=== PATIENT | female | born 1965 | race Caucasian/White ===

== ENCOUNTER 2019-12-09 20:44 | Emergency (ER) | payer BC ==
[~2019-12-09] VITALS: Ht 167.6 cm; Wt 106.6 kg
[2019-12-09] MEDS ORDERED: MORPHINE SULFATE 2 MG/ML SYR 1ML IV STA ×2 (21:01→22:33)
[2019-12-09] MEDS ORDERED: ONDANSETRON HCL INJ 2MG/ML 2ML 2 MG/ML VIAL IV STA (21:01)
--- NOTE | 2019-12-09 21:11 | Emergency Department Note ---
History of Present Illnes History of Present Illness Chief Complaint: Headache History of Present Illness This is a 54 year old female . 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 Onset (how long ago): hour(s) (3 hours ago) Location: entire head came on suddenly all happened while outside at a wedding Quality: throbbing Radiation: Reports non-radiation Severity: severe Onset quality: sudden Duration (how long): hour(s) (3) Timing of current episode: constant Progression: unchanged Chronicity: chronic (hx of migraines but patient states this is different) Relieving factors: none Exacerbating factors: none Treatments prior to arrival: NSAID Risk factors: hypertension pt stopped her meds without consulting her physician Past Medical/Family History Physician Review I have reviewed the patient's past medical and family history. Any updates have been documented here. Past Medical History Past Medical History: Hypertension, Migraines Other Medical History: iron deficiency anemia Past Surgical History: None Other Surgery: LMP 3 weeks ago usually heavy Social History Smoking Cessation: Never Smoker Alcohol Use: Social Any Illegal Drug Use: No TB Exposure/Symptoms: No Physically hurt or threatened: No Other Last Tetanus: ood Any Pre-Existing Lines (PICC,: No Review of Systems Review of Systems Constitutional: Reports no symptoms EENTM: Reports no symptoms Cardiovascular: Reports no symptoms Respiratory: Reports no symptoms Gastrointestinal: Reports no symptoms Genitourinary: Reports no symptoms Musculoskeletal: Reports no symptoms Neurological: Reports as per HPI, Reports headache Psychological: Reports no symptoms Endocrine: Reports no symptoms Hematological/Lymphatic: Reports no symptoms Review of other systems: All other systems negative Physical Exam Related Data Allergies: Coded Allergies: Penicillins (Verified Allergy, Unknown, 12/09/19) Vital signs reviewed: Yes Physical Exam CONSTITUTIONAL Constitutional: Present well-developed, Present well-nourished, Present obese HENT HENT: Present normocephalic, Present other (no temporal artery tenderness) EYES Eyes: Reports PERRL, Reports conjunctivae normal, Reports EOM normal, Reports lids normal NECK Neck: Present ROM normal, Present supple PULMONARY Pulmonary: Present effort normal, Present breath sounds normal CARDIOVASCULAR Cardiovascular: Present regular rhythm, Present heart sounds normal, Present intact distal pulses, Present capillary refill normal, Present normal rate GASTROINTESTINAL Abdominal: Present soft, Present nontender GENITOURINARY SKIN Skin: Present warm, Present dry MUSCULOSKELETAL Musculoskeletal: Present ROM normal, Present edema NEUROLOGICAL Neurological: Present alert, Present oriented x 3, Present DTRs normal, Present no gross motor or sensory deficits PSYCHOLOGICAL Psychological: Present mood/affect normal, Present behavior normal, Present thought content normal, Present judgement normal Results Laboratory Lab results reviewed: Yes Laboratory comments wbc 10.4 mildly increased h/h 15/48.2 not MCV 81 not consistent with iron deficieny as the pt reports. Chem gluc 132 not fasting and Ca 2+ 10.5 mildly elevated. Pt refused to give a urine therefore test not done . Unlikely that pt at this age Imaging Imaging results reviewed: Yes Impressions ct brain without negative and ct agio also negative Assessment & Plan Medical Decision Making MDM mod improvement with morphine ct with and without neg . Pt told only definitive test to rule out subarachnoid, LP with the patient refused LP Reassessment Reassessment time: 22:54 Reassessment moderate improvement with headache Assessment & Plan Final Impression: (1) Headache Depart Disposition: HOME, SELF-skilled nursing Meds Active Scripts Tramadol Hcl (ULTRAM) 50 Mg Tablet, 50 MG PO QID PRN for headache, #20 TAB 0 Refills Prov:MOR GRECO MD 12/09/19 MOR GRECO MD Dec 09, 2019 21:10
[2019-12-09] MEDS ORDERED: SODIUM CHLORIDE 0.9% 1000ML 1,000 ML IV SCH (21:15)
[2019-12-09] MEDS ORDERED: IOPAMIDOL 370 MG/ML 200 ML INFUS..BTL INJ ONE (21:21)
[2019-12-09] MEDS ORDERED: SODIUM CHLORIDE 0.9% 50ML 50 ML ONE (21:21)
[2019-12-09] MEDS ORDERED: ONDANSETRON HCL INJ 2MG/ML 2ML 2 MG/ML VIAL ONE (21:23)
[2019-12-09] MEDS ORDERED: MORPHINE SULFATE INJ 4 MG/ML INJ 1ML ONE ×2 (21:24→22:41)
[2019-12-09] MEDS ORDERED: SODIUM CHLORIDE 0.9% 1000ML 1,000 ML ONE (21:24)
--- OUTSIDE RECORDS SUMMARY | 2019-12-09 21:56 | XMS REPORT | Continuity of Care Document ---
Author Author [facility] Organization [facility] Address [address] [place] [address] Phone Unavailable Care Team Providers Care Processing Operator Name Role Phone Unavailable Unavailable Payers Payer Name Policy Type Policy Number Effective Date Expiration Date S ource Problems This patient has no known problems. Allergies, Adverse Reactions, Alerts This patient has no known allergies or adverse reactions. Medications This patient has no known medications. Procedures This patient has no known procedures. Results Test Description Test Time Test Comments Results Result Comments Source BREAST ULTRASOUND LEFT 2019-04-21 09:15:41 - DI AG MAMM LEFT RM CAD DIGITALUNILATERAL LEFT DIGITAL DIAGNOSTIC MAMMOGRAM 3D/2D WITH CAD: 04/20/2019CLINICAL: Abnormal Mammogram. Digital breast tomosynthesis was performed in addition to routine CC and MLO views. Current mammographic images were evaluated by either a [employer] M-[employer]u or a [employer] ImageChecker CAD (computer aided detection system). Comparison is made to exams dated 04/11/2019 mamm ogram, 04/12/2012 mammogram, and 04/14/2011 mammogram - [facility] [place]. There are scattered fibroglandular tissues in the left breast. Persistent 6-7 mm oval circumscribed low-density mass at 9 o'clock, posterior depth. No suspicious architectural distortion, malignant type calcification, or lymph node abnormality detected.INCOMPLETE: ADDITIONAL IMAGING EVALUATION NEEDEDPersistent 6-7 mm oval circumscribed low-density mass at 9 o'clock, posterior depth. Targeted and survey left breast ultrasound to follow.- BREAST ULTRASOUND LEFTULTRASOUND OF LEFT BREAST: 04/20/2019Comparison is made to exams dated 04/11/2019 mammogram, 04/12/2012 mammogram, and [facility] Color flow and real-time ultrasound of the left breast were performed. [place] scale images of the real-time examination were reviewed. The breast tissue has scattered fibroglandular background echotexture. Targeted ultrasound demonstrates a few scattered simple cysts at 9 o'clock, which may correlate with the mammographic mass. Incidentally noted is a 13 mm echogenic nonpalpable oval, circumscribed mass at 10 o'clock, 5 cm from the nipple, within the subcutaneous tissue. The rest of the left breast survey ultrasound is negative.IMPRESSION: PROBABLY BENIGN - FOLLOW-UP RECOMMENDEDSimple cyst which may correlate with the mammographic oval circumscribed low-density benign- appearing mass (of note: patient is premenopausal) - in addition, mammogram from 2009 demonstrates a similar mass (see CC view). Incidentally noted echogenic nonpalpable oval circumscribed benign-appearing mass at 10 o'clock, probably benign. A follow-up mammogram and an ultrasound in 6 months is recommended to demonstrate stability. Damion Manzano M.D. ss/:04/21/2019 09:15:41 copy to: Estrellita Regan MD, ph: [phone], fax: [phone] Technologist: Celia CHACON, [facility] sent: Short Term Follow Up Mammogram BI-RADS: 0 Incomplete: Additional Imaging Evaluation Needed Ultrasound BI-RADS: 3 Probably benign DIAG MAMM LEFT RM CAD DIGITAL 2019-04-21 09:15:41 - DIAG MAMM LEFT RM CAD DIGITALUNILATERAL LEFT DIGITAL DIAGNOSTIC MAMMOGRAM 3D/2D WITH CAD: 04/20/2019CLINICAL: Abnormal Mammogram. Digital breast tomosynthesis was performed in addition to routine CC and MLO views. Current mammographic images were evaluated by either a [employer] M[employer] or a [employer] ImageChecker CAD (computer aided detection system). Comparison is made to exams dated 04/11/2019 mamm ogram, 04/12/2012 mammogram, and [facility]. There are scattered fibroglandular tissues in the left breast. Persistent 6-7 mm oval circumscribed low-density mass at 9 o'clock, posterior depth. No suspicious architectural distortion, malignant type calcification, or lymph node abnormality detected.INCOMPLETE: ADDITIONAL IMAGING EVALUATION NEEDEDPersistent 6-7 mm oval circumscribed low-density mass at 9 o'clock, posterior depth. Targeted and survey left breast ultrasound to follow.- BREAST ULTRASOUND LEFTULTRASOUND OF LEFT BREAST: 04/20/2019Comparison is made to exams dated 04/11/2019 mammogram, 04/12/2012 mammogram, and 04/14/2011 mammogram - [facility]-. Color flow and real-time ultrasound of the left breast were performed. [place] scale images of the real-time examination were reviewed. The breast tissue has scattered fibroglandular background echotexture. Targeted ultrasound demonstrates a few scattered simple cysts at 9 o'clock, which may correlate with the mammographic mass. Incidentally noted is a 13 mm echogenic nonpalpable oval, circumscribed mass at 10 o'clock, 5 cm from the nipple, within the subcutaneous tissue. The rest of the left breast survey ultrasound is negative.IMPRESSION: PROBABLY BENIGN - FOLLOW-UP RECOMMENDEDSimple cyst which may correlate with the mammographic oval circumscribed low-density benign- appearing mass (of note: patient is premenopausal) - in addition, mammogram from 2009 demonstrates a similar mass (see CC view). Incidentally noted echogenic nonpalpable oval circumscribed benign-appearing mass at 10 o'clock, probably benign. A follow-up mammogram and an ultrasound in 6 months is recommended to demonstrate stability. Damion Manzano M.D. ss/:04/21/2019 09:15:41 copy to: Estrellita Regan MD, ph: [phone], fax: [phone] Technologist: Celia Orellana , [facility]letter sent: Short Term Follow Up Mammogram BI-RADS: 0 Incomplete: Additional Imaging Evaluation Needed Ultrasound BI-RADS: 3 Probably benign SCR MAMM BILATERAL CAD DIGITAL 2019-04-11 10:16:07 - SCR MAMM BILATERAL CAD DIGITALBILATERAL DIGITAL SCREENING MAMMOGRAM WITH CAD: 04/11/2019CLINICAL: Asymptomatic. Current mammographic images were evaluated by either a [employer] M[employer] Vu or a [employer] ImageChecker CAD (computer aided detection system). Comparison is made to exams dated 04/12/2012 mammogram, 04/14/2011 mammogram, and 05/07/2009 mammogram - [facility]-. There are scattered fibroglandular tissues in both breasts. A 9 mm focal asymmetry in the left upper inner breast approximately 9 cm from the nipple.No suspicious mass, architectural distortion, malignant type calcification, or lymph node abnormality detected in the right breast. IMPRESSION: INCOMPLETE: ADDITIONAL IMAGING EVALUATION NEEDEDA 9 mm focal asymmetry in the left upper inner breast approximately 9 cm from the n ipple. Spot compression rm synthesis and possible ultrasound is recommended at this time.Damion Manzano M.D. ss/:04/11/2019 10:16:07 copy to: Lukas Morton MD, ph: [phone], fax: [phone] Technologist: Gracy Viramontes , [facility]-letter sent: Additional Imaging Mammogram BI-RADS: 0 Incomplete: Additional Imaging Evaluation Needed
--- NOTE | 2019-12-09 22:36 | Diagnostic Imaging Report ---
Examination: Intracranial CT Angiogram with Contrast History:Severe headache with nausea and vomiting. Comparison studies:None Technique: Axial images were obtained from the skull base to the vertex before and after the intravenous administration of contrast. Coronal and sagittal images reconstructed from the axial data. Intravenous contrast: 100 cc of Isovue 370. Computer generated maximum intensity projection and 3D images of the anterior and posterior circulations was performed on a separate workstation. Dose modulation, iterative reconstruction, and/or weight based adjustment of the mA/kV was utilized to reduce the radiation dose to as low as reasonably achievable. Findings: Head CT: Scalp: No abnormalities. Bones: No fractures, blastic or lytic lesions. Brain sulci: Appropriate for age. Ventricles: Normal in size and configuration. No hydrocephalus. Extra-axial space: No abnormalities. Parenchyma: No masses, hemorrhage, or acute or chronic cortical based vascular insults.. Sellar/suprasellar region: No abnormalities. Craniocervical junction: Patent foramen magnum. No Chiari one malformation. Incidental findings: None. CTA: Internal carotid arteries: Patent.. Anterior cerebral arteries: Patent A1 and A2. Middle cerebral arteries: Patent M1 and M2. Posterior cerebral arteries: Patent P1 and P2. Vertebro-basilar system: Patent. Anatomical variants: Anterior communicating artery :Present and patent. Posterior communicating arteries: Present and patent bilaterally. Vertebral arteries: Codominant. IMPRESSION: 1. No acute intracranial abnormality. 2. No intracranial arterial stenosis or occlusion or vascular malformation. Signed by: Dr. Marisela Thomas M.D. on 12/09/2019 10:32 PM
[2019-12-09] MEDS ORDERED: ULTRAM50 MG PO (22:53)
== END 2019-12-09 23:05 | disposition home or self-care (01) ==
LOC: FSED 21:05
DX: R51 Headache (principal); I10 Essential (primary) hypertension
CPT/HCPCS: 70496; 99284; J2270; J2405; J7030; Q9967